=== PATIENT | male | born 1995 | race Caucasian/White ===

== ENCOUNTER → 2020-07-07 15:03 | Outpatient (CLI) | payer BC, SELFPAY ==
--- NOTE | ~2020-07-07 | CT_ITS ---
EXAMINATION: CT abdomen pelvis w con DATE: 07/07/2020 15:37 INDICATION: Right lower quadrant abdominal pain. Nausea. TECHNIQUE: Computed tomography (CT) of the abdomen and pelvis was performed with 100 cc Omnipaque 350 intravenous contrast. Automated exposure control and iterative reconstruction technique were employe d. Exam dose: 1089.31 mGy-cm total exam DLP. COMPARISON: None. FINDINGS: The lung bases are clear. Normal heart size. No pericardial or pleural effusion. The liver, gallbladder, bile ducts, spleen, pancreas, and adrenal glands and kidneys are unremarkable except for a small cyst of the right kidney. Normal caliber of the abdominal aorta. There are scattered nonspecific nonenlarged mesenteric and rig ht lower quadrant lymph nodes; no intraperitoneal or retroperitoneal or pelvic mass lesion or adenopa thy or ascites. The urinary bladder, prostate gland and seminal vesicles are unremarkable. Normal appendix. No bowel obstruction, bowel wall thickening, pneumatosis or intraperitoneal free air is detected. Small fat-containing umbilical hernia. Included skeletal structures are unremarkable. IMPRESSION: Normal appendix Nonspecific scattered nonenlarged mesenteric and right lower quadrant lymph nodes, suggesting mild me senteric adenitis Small cyst of right kidney Reviewed, dictated and finalized at [facility]. Reviewed, dictated and finalized at [facility]. IMPRESSION: Normal appendix Nonspecific scattered nonenlarged mesenteric and right lower quadrant lymph nod es, suggesting mild mesenteric adenitis Small cyst of right kidney
== END ==
PROVIDERS: PCP Internal Medicine; Visit Provider Internal Medicine
DX: R10.31 Right lower quadrant pain (principal); N28.1 Cyst of kidney, acquired
CPT/HCPCS: 74177; Q9967